=== PATIENT | female | born 1950 | race Caucasian/White ===

== ENCOUNTER → 2016-08-19 14:11 | Outpatient (CLI) | payer MEDICARE | END | disposition home or self-care (01) | LOC: D.CT 14:11 | DX: R10.12 Left upper quadrant pain (principal) ==

== ENCOUNTER 2016-08-29 08:15 | Day surgery (SDC) | payer MEDICARE ==
[~2016-08-29] VITALS: Ht 170.2 cm; Wt 74.8 kg
[~2016-08-29 08:15] MED LIST: ALBUTEROL2.5 MG/3 M INH; ASPIRIN325 MG PO; ZYRTEC10 MG PO
[2016-08-29 09:00] VITALS: BP 147/84; BP 166/114; Ht 170.2 cm; Wt 74.8 kg
[2016-08-29 10:37] LABS: HEMATOCRIT 45.3 % (36.0-48.0); HEMOGLOBIN 14.8 g/dL (12-16); MCH 22.3 pg (26.0-34.0); MCHC 32.7 g/dL (31.0-37.0); MCV 68.3 fL (80.0-100.0); MEAN PLATELET VOLUME 10.8 fL (7.4-10.4); WBC 7.1 10x3/uL (4.8-10.8)
[2016-08-29 10:41] LABS: RBC 6.63 10x6/uL (4.00-5.40)
--- NOTE | 2016-08-29 11:41 | NUR ---
FAMILY, CONNOR, CALLED IN PATIENT ROOM 1852. INFORMED PROCEDURE NOT YET STARTED, PATIENT STATUS UPDATE GIVEN. INFORMED NEXT CALL WOULD BE AT ONSET OF SURGICAL PROCEDURE.
[2016-08-29] MEDS ORDERED: HYDROCODON-ACE1 EAC7 PO (12:53)
--- NOTE | 2016-08-29 14:03 | NUR ---
ANETHESIA CONSULTED FOR DECREASED HEART RATE OF 45. DR WILSON AT BEDSIDE REVIEWING PREOP EKG AND HEART MONITOR. DR WILSON VOICED NO CONCERN. WILL CONTINUE TO MONITOR.
--- NOTE | 2016-08-29 23:30 | OP ---
PATIENT NAME: DAMON CEDENO MEDICAL RECORD: [id number] :52 LOCATION:D.[facility] ADMISSION DATE: SURGEON: JOVANY HOOKS MD DATE OF OPERATION: 08/29/2016 SURGEON: Jovany Hooks MD PREOPERATIVE DIAGNOSES: 1. Cholelithiasis without obstruction. 2. Right upper quadrant pain. POSTOPERATIVE DIAGNOSES: 1. Cholelithiasis without obstruction. 2. Right upper quadrant pain. PROCEDURE PERFORMED: Laparoscopic cholecystectomy. ANESTHESIA: General. COMPLICATIONS: None. SPECIMENS: Gallbladder. Case is clean contaminated. ESTIMATED BLOOD LOSS: 20 cc. OPERATIVE COURSE: After consent was obtained, the patient was taken to the operating room and placed in the supine position on the operating table. Next, general anesthesia was given via endotracheal intubation after a timeout was performed that confirmed the correct patient and procedure. The abdomen was then prepped and draped in typical sterile fashion. Local anesthetic was injected just above the umbilicus. A stab incision was made with a 11-blade scalpel. Using a 5-mm bladeless optical trocar, the abdomen was entered under direct laparoscopic vision. Adequate pneumoperitoneum was achieved. The abdominal cavity was inspected. No evidence of bowel injury. No evidence of bleeding. The patient was placed in the steep reverse Trendelenburg position. All remaining trocars were placed after the administration of local anesthetic, two 5-mm trocars in the right upper quadrant and 11-mm trocar in the subxiphoid position. The fundus of the gallbladder was grasped and retracted cephalad. The infundibulum was grasped and retracted laterally. The peritoneum was incised using electrocautery. Blunt dissection was performed until the critical view was obtained. The cystic duct lateral, cystic artery medial, liver in the posterior window. Three clips were placed in the proximal cystic duct, 1 clip distal and 2 clips were placed in the proximal cystic artery. The duct and artery was then transected with laparoscopic Metzenbaum scissors. The remaining portion of the gallbladder was then dissected off the liver bed using electrocautery. Once complete, it was grasped with the tenaculum and removed through the 11-mm trocar and sent for permanent pathology. Next, the operative field was copiously irrigated and suctioned. Careful attention was paid to hemostasis, which was obtained in the liver bed using electrocautery. Again, the operative field was copiously irrigated and suctioned. Upon inspection, there were [address] in the cystic duct, 2 clips placed in the cystic artery. The remaining portion of the abdominal cavity was inspected. There was no evidence of bowel injury. No evidence of bleeding, no evidence of bile leak. OPERATIVE REPORT [id number] DAMON CEDENO At this time, all remaining instruments were removed. The abdomen was desufflated. Trocars removed. Skin was closed with 4-0 Monocryl, Mastisol and Steri-Strips. At the end of the case, all needle and instrument counts were correct. No complications occurred. The patient was extubated and transferred to the PACU in stable condition. TRANSINT:[id number] Voice Confirmation ID: [id number] DOCUMENT ID: [id number] JOVANY HOOKS MD at 2330 CC: [id number] DICTATION DATE: 08/29/16 1257 [employer] REPRESENTATIVE: 08/29/16 1809 [facility] 08/29/16 [facility] [address] [place] [address]
== END 2016-08-29 15:15 | disposition home or self-care (01) ==
LOC: D.OPS 08:15 → D.PAN 10:15 → D.OPS 12:15
PROVIDERS: Anesthesiology
DX: K80.20 Calculus of gallbladder without cholecystitis without obstruction (principal); R10.11 Right upper quadrant pain; F17.200 Nicotine dependence, unspecified, uncomplicated; J45.909 Unspecified asthma, uncomplicated; Z01.812 Encounter for preprocedural laboratory examination

== ENCOUNTER 2016-10-10 06:15 | Day surgery (SDC) | payer MEDICARE ==
[~2016-10-10] VITALS: Ht 170.2 cm; Wt 64.5 kg
[~2016-10-10 06:15] MED LIST changes: +HYDROCODON-ACE1 EAC7 PO
[2016-10-10 06:50] LABS: BASOPHILS 0.5 % (0-2); EOSINOPHILS 4.1 % (0-7); HEMATOCRIT 47.6 % (36.0-48.0); HEMOGLOBIN 15.4 g/dL (12-16); IMMATURE GRANULOCYTES 0.4 % (0-5); LYMPHOCYTES 25.5 % (15-50); MCH 21.9 pg (26.0-34.0); MCHC 32.4 g/dL (31.0-37.0); MCV 67.7 fL (80.0-100.0); MEAN PLATELET VOLUME 9.9 fL (7.4-10.4); MONOCYTES 8.7 % (2-11); NEUTROPHILS 60.8 % (40-80); PLATELET COUNT 256 10x3/uL (130-400); RDW 16.3 % (11.5-14.5); WBC 7.8 10x3/uL (4.8-10.8)
[2016-10-10 06:57] LABS: RBC 7.03 10x6/uL (4.00-5.40)
[2016-10-10 07:34] VITALS: BP 136/72; Ht 170.2 cm; Wt 64.5 kg
--- NOTE | 2016-10-10 17:04 | NUR ---
1115 IV DC'ED WITH CATH INTACT & 275ML LTC. Daljit CHOI R.N. 1125 DRESSED AWAKE & ALERT. GIVEN DISCHARGE INFORMATION INCLUDING: MED REC., NSAIDS & BLOOD THINNERS TO AVOID SHEET, RTC APPT., & D/C INSTRUCTIONS SHEET POST ENDOSCOPIC PROCEDURES. PT VOICED UNDERSTANDING. TO PRIVATE CAR PER WHEELCHAIR BY VOLUNTEER. HOME WITH FRIEND, CONNOR. Daljit CHOI R.N.
== END 2016-10-10 11:25 | disposition home or self-care (01) ==
LOC: D.OPS 06:15
PROVIDERS: Anesthesiology
DX: Z12.11 Encounter for screening for malignant neoplasm of colon (principal); K57.30 Diverticulosis of large intestine without perforation or abscess without bleeding; D12.3 Benign neoplasm of transverse colon; Z01.812 Encounter for preprocedural laboratory examination